=== PATIENT | female | born 1940 | race Caucasian/White ===

== ENCOUNTER → 2019-03-28 | Outpatient (CLI) | payer OTHER, BC | LOC: NUC 09:28 | DX: M81.0 Age-related osteoporosis without current pathological fracture (principal); M17.0 Bilateral primary osteoarthritis of knee; Z78.0 Asymptomatic menopausal state ==

== ENCOUNTER 2019-11-04 21:21 | Inpatient (IN) | payer OTHER, BC ==
[~2019-11-04] VITALS: Ht 142.2 cm; Wt 64.3 kg
[2019-11-04 21:24] VITALS: BP 146/78
[2019-11-04 22:01] LABS: ABSOLUTE NEUTROPHILS 3.7 thou/uL (1.4-8.2); BASOPHILS 1.1 % (0.0-2.0); EOSINOPHILS 4.8 % (0.0-3.0); HEMATOCRIT 38.8 % (37.0-47.0); HEMOGLOBIN 12.6 gm/dL (12.0-15.0); LYMPHOCYTES 32.2 % (24.0-44.0); MCH 30.8 pg (26.0-34.0); MCHC 32.4 g/dL (28.0-37.0); MONOCYTES 7.9 % (1.0-8.0); PLATELET COUNT 202 thou/uL (150-400); RBC 4.08 mil/uL (4.20-5.00); RDW 14.6 % (10.5-14.5); WBC 6.9 thou/uL (4.0-11.0)
[2019-11-04 22:08] LABS: ANION GAP 7 mmol/L (7-16); BUN 36 mg/dL (7-18); CALCIUM 9.4 mg/dL (8.5-10.1); CHLORIDE 103 mmol/L (98-107); CO2 27 mmol/L (21-32); GLUCOSE 131 mg/dL (74-106); POTASSIUM 3.7 mmol/L (3.5-5.1); SODIUM 137 mmol/L (136-145)
[2019-11-04 22:18] LABS: LIPASE 278 U/L (73-393); SGOT 15 U/L (15-37); SGPT 19 U/L (30-65); TOTAL BILIRUBIN 0.3 mg/dL (<0.1-1.0); TOTAL PROTEIN 7.3 g/dL (6.4-8.2); TROPONIN-I <0.06 ng/mL (<0.06)
[2019-11-04 23:40] LABS: URINE BILIRUBIN NEGATIVE (Negative); URINE BLOOD TRACE (Negative); URINE CLARITY CLEAR; URINE COLOR YELLOW; URINE GLUCOSE-RANDOM* NEGATIVE (Negative); URINE KETONES NEGATIVE (Negative); URINE LEUKOCYTES-REFLEX NEGATIVE (Negative); URINE NITRITE-REFLEX NEGATIVE (Negative); URINE PROTEIN (DIPSTICK) NEGATIVE (Negative); URINE UROBILINOGEN 0.2 E.U./dl (0.2-1.0)
[2019-11-05] VITALS (8 sets, daily range): BP systolic 134–193; BP diastolic 58–88
--- NOTE | 2019-11-05 03:09 | NUR ---
PT AOX4 WITH INTERMITTENT FORGETFULNESS. PT REPORTS SHE IS NOT THE BEST HISTORIAN. UNABLE TO OBTAIN MEDICATION LIST AT THIS TIME DUE TO PT POOR RECALL. PT TRANSFERRING FROM BED TO BEDSIDE COMMODE WITH STANDBY ASSIST, PT RESTING IN BED OTHERWISE. PT REPORTS BASELINE USE OF WALKER AND WHEELCHAIR AT HOME. PT REPORTS WEAKNESS IN BLE WITH ACTIVITY. PT TOLERATING PO INTAKE OF CLEAR LIQUID DIET WITHOUT ISSUE. NO REPORTS OF NAUSEA AT THIS TIME. PT REPORTS DAUGHTER, EMILIE KURTZ WILL BE BY TOMORROW TO ASSIST WITH MEDICATION RECONCILIATION. PT ORIENTED TO UNIT AND ROOM. ENCOURAGED PT TO NOTIFY STAFF FOR ALL NEEDS. CALL LIGHT WITHIN REACH, BED IN LOWEST POSITION, BED ALARM ON. WILL CONTINUE TO MONITOR.
[2019-11-05 06:55] LABS: CALCIUM 8.8 mg/dL (8.5-10.1); CREATININE 0.9 mg/dL (0.6-1.0); POTASSIUM 3.7 mmol/L (3.5-5.1)
[2019-11-05] MEDS ORDERED: ALLOPURINOL 10100 M3 PO (09:11)
[2019-11-05] MEDS ORDERED: PROTOPIC OINTME30 GM TP (09:12)
[2019-11-05] MEDS ORDERED: HYDROCHLOROTHIA25 M2 PO (09:12)
[2019-11-05] MEDS ORDERED: MUPIROCIN15 GM TOP (09:13)
[2019-11-05] MEDS ORDERED: NYSTATIN100000 UNI SW&SWALLOW (09:14)
[2019-11-05] MEDS ORDERED: THEO-24300 MG PO (09:14)
[2019-11-05] MEDS ORDERED: MELOXICAM15 MG PO (09:15)
[2019-11-05] MEDS ORDERED: VERAPAMIL ER240 M1 PO (09:15)
[2019-11-05] MEDS ORDERED: RALOXIFENE HCL60 MG PO (09:15)
[2019-11-05] MEDS ORDERED: SINGULAIR 10 MG10 M1 PO (09:16)
[2019-11-05] MEDS ORDERED: IRBESARTAN150 MG PO (09:16)
[2019-11-05] MEDS ORDERED: KLOR-CON M2020 MEQ PO (09:17)
--- NOTE | 2019-11-05 09:17 | NUR ---
SPOKE WITH PHARMACIST AT [facility] AND OBTAINED PATIENTS CURRENT MEDICATION LIST.
--- NOTE | 2019-11-05 12:26 | NUR ---
VSS-AFEBRILE. LUNGS CLEAR/DIMINSHED IN ALL ARREGUIN BILATERALLY-ROOM AIR. NO REPORTED N/V OR DIARRHEA SINCE ADMISSION. DR PRITCHARD IN TO SEE PATIENT, ORDERS RECIEVED. NO REPORTS OF PAIN, OR DIFFICULTY VOIDING. FALL PRECAUTIONS IN PLACE. TRANSFERRED TO SENIOR SUITES, PHYSICIAN AND FAMILY NOTIFIED. REPORT GIVEN TO RECIEVEING RN.
--- NOTE | 2019-11-06 03:31 | NUR ---
PATIENT ALERT AND ORIENTED X4. UP WITH SBA IN ROOM. BED ALARM ON DUE TO FORGETFULNESS. PATIENT REFUSED TO WEAR SCD'S STATED THAT SHE WAS "AMBULATORY" AND DID NOT NEED THEM. IVF INFUSING W/O COMPLICATION. UP TO BATHROOM WITH SBA AND WALKER. DENIES PAIN.
[2019-11-06 05:36] VITALS: BP 179/84
[2019-11-06 07:11] VITALS: BP 179/84
[2019-11-06 07:27] VITALS: BP 179/84
[2019-11-06] MEDS ORDERED: CATAPRES0.1 MG PO (09:32)
[2019-11-06 09:36] VITALS: BP 179/84
[2019-11-06 11:27] VITALS: BP 137/76
--- NOTE | 2019-11-06 11:59 | NUR ---
PT CARE ASSUMED AT 0700. A&Ox4 PT UP WALKING WITH THE AID AND A WALKER. IV FLUIDS DC'D. IV PATENT WITH NO REDNESS OR EDEMA. FALL PROTOCOL IN PLACE. PT UP IN THE RECLINER MOST OF THE DAY. EASILY ORIENTED BACK WHEN THE CHAIR ALARM GOES OFF TO NOT GET UP. DAUGHTER IN THE ROOM. PT IS INTICIPATED TO DC TODAY AFTER A ONETIME DOSE OF [place]AN AND BP RECHECK. CALL LIGHT IN REACH
[2019-11-06 12:36] VITALS: BP 137/76
--- NOTE | 2019-11-07 08:07 | EKG ---
[facility] [place] [address] ELECTROCARDIOGRAM REPORT Name: ALLEN KURTZ Room #: 405-[facility] IN M.R.#: [id number] Admission: 11/05/19 Attend Phys: Dayanna Nieves MD Discharge: 11/06/19 Date of : 40 Report #: [id number] THIS REPORT FOR: cc: Mello Soliz MD, Neal A. 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 : 1940 Requested By: Mary Diaz Order Number: [id number] MD: Kavin Maynard Measurements Intervals [place] Rate: 66 P: 218 [place]: 253 QRS: 35 QRSD: 104 T: 75 QT: 460 QTc: 482 Interpretive Statements Sinus with first-degree AV block Otherwise no significant abnormality No previous ECG available for comparison Electronically Signed On 11-07-2019 8:06:16 CDT by Kavin Maynard [email or web address] <ELECTRONICALLY SIGNED> By: Kavin Maynard MD, [facility] 11/07/19 0806 57 Kavin Maynard MD, [facility] /EPI
== END 2019-11-06 13:25 | disposition home or self-care (01) | DRG 392 ==
LOC: ER 21:21 → EROBS 11-05 00:24 → 4S 11-05 01:16 → 4N 11-05 12:00
PROVIDERS: Emergency Medicine Emergency Medical Services; Nurse Practitioner Family; ADMIT Hospitalist
DX: K52.9 Noninfective gastroenteritis and colitis, unspecified (principal); K29.70 Gastritis, unspecified, without bleeding; E86.0 Dehydration; M10.9 Gout, unspecified; I10 Essential (primary) hypertension; J45.909 Unspecified asthma, uncomplicated; F03.90 Unspecified dementia, unspecified severity, without behavioral disturbance, psychotic disturbance, mood disturbance, and anxiety; M19.90 Unspecified osteoarthritis, unspecified site; Z96.653 Presence of artificial knee joint, bilateral; T50.905A Adverse effect of unspecified drugs, medicaments and biological substances, initial encounter; Z96.612 Presence of left artificial shoulder joint; M81.0 Age-related osteoporosis without current pathological fracture; Y92.89 Other specified places as the place of occurrence of the external cause; Z88.0 Allergy status to penicillin; Z88.1 Allergy status to other antibiotic agents
CPT/HCPCS: 10790

== ENCOUNTER 2019-11-07 12:56 | Emergency (ER) | payer OTHER, BC ==
[~2019-11-07] VITALS: Ht 149.9 cm; Wt 45.4 kg
[~2019-11-07 12:56] MED LIST: ALLOPURINOL 10100 M3 PO; CATAPRES0.1 MG PO; HYDROCHLOROTHIA25 M2 PO; IRBESARTAN150 MG PO; KLOR-CON M2020 MEQ PO; MELOXICAM15 MG PO; MUPIROCIN15 GM TOP; NYSTATIN100000 UNI SW&SWALLOW; PROTOPIC OINTME30 GM TP; RALOXIFENE HCL60 MG PO; SINGULAIR 10 MG10 M1 PO; THEO-24300 MG PO; VERAPAMIL ER240 M1 PO
[2019-11-07 14:09] VITALS: BP 148/73
== END 2019-11-07 14:05 | disposition left against medical advice (07) ==
LOC: ER 12:56
DX: M54.2 Cervicalgia (principal); M25.511 Pain in right shoulder; M81.0 Age-related osteoporosis without current pathological fracture; F03.90 Unspecified dementia, unspecified severity, without behavioral disturbance, psychotic disturbance, mood disturbance, and anxiety; I10 Essential (primary) hypertension; J45.909 Unspecified asthma, uncomplicated; Z96.653 Presence of artificial knee joint, bilateral; Z96.612 Presence of left artificial shoulder joint; Z79.899 Other long term (current) drug therapy; Z88.0 Allergy status to penicillin; Z88.1 Allergy status to other antibiotic agents; Z88.6 Allergy status to analgesic agent; Z88.4 Allergy status to anesthetic agent

== ENCOUNTER 2020-11-10 21:27 | Emergency (ER) | payer OTHER, BC ==
[~2020-11-10] VITALS: Ht 142.2 cm; Wt 62.1 kg
[2020-11-10 21:54] LABS: ABSOLUTE NEUTROPHILS 3.1 thou/uL (1.4-8.2); BASOPHILS 0.9 % (0.0-2.0); EOSINOPHILS 5.3 % (0.0-3.0); HEMATOCRIT 34.2 % (37.0-47.0); HEMOGLOBIN 11.5 gm/dL (12.0-15.0); LYMPHOCYTES 31.4 % (24.0-44.0); MCH 31.6 pg (26.0-34.0); MCHC 33.7 g/dL (28.0-37.0); MCV 93.8 fL (80.0-100.0); MONOCYTES 11.8 % (1.0-8.0); PLATELET COUNT 183 thou/uL (150-400); POLYS 50.6 % (36.0-66.0); RBC 3.65 mil/uL (4.20-5.00); RDW 14.2 % (10.5-14.5); WBC 6.1 thou/uL (4.0-11.0)
[2020-11-10] MEDS ORDERED: PREDNISONE 20 M20 MG PO (22:02)
[2020-11-10 22:10] LABS: ANION GAP 9 mmol/L (7-16); BUN 37 mg/dL (7-18); CALCIUM 8.9 mg/dL (8.5-10.1); CHLORIDE 106 mmol/L (98-107); CO2 28 mmol/L (21-32); CREATININE 1.1 mg/dL (0.6-1.0); GLUCOSE 100 mg/dL (74-106); POTASSIUM 3.6 mmol/L (3.5-5.1); SODIUM 143 mmol/L (136-145)
[2020-11-10 22:15] LABS: ALBUMIN 3.6 g/dL (3.4-5.0); SGOT 13 U/L (15-37); SGPT 18 U/L (14-59); TOTAL BILIRUBIN 0.2 mg/dL (0.2-1.0); TOTAL PROTEIN 6.8 g/dL (6.4-8.2); TROPONIN-I <0.06 ng/mL (<0.06)
[2020-11-10] MEDS ORDERED: HYDROCHLOROTH12.5 M1 PO (23:21)
[2020-11-11 00:30] VITALS: BP 119/40
--- NOTE | 2020-11-12 07:24 | EKG ---
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: 1940 Requested By: Nura Anderson Order Number: [id number] MD: Sid Denise Measurements Intervals [place] Rate: 71 P: -22 SD: 211 QRS: 40 QRSD: 115 T: 81 QT: 432 QTc: 470 Interpretive Statements Sinus rhythm Nonspecific intraventricular conduction delay Borderline low voltage, extremity leads Compared to ECG 11/04/2019 21:58:53 Intraventricular conduction delay now present Electronically Signed On 11-12-2020 7:23:44 CDT by Sid Denise [email or web address] <ELECTRONICALLY SIGNED> By: Sid Denise MD, [facility] 11/12/20 0723 [id number] Sid Denise MD, FACC /EPI
--- NOTE | 2020-11-12 07:24 | EKG ---
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: 1940 Requested By: Nura Anderson Order Number: [id number] MD: Sid Denise Measurements Intervals [place] Rate: 71 P: -77 [place]: 242 QRS: 43 QRSD: 98 T: 74 QT: 436 QTc: 474 Interpretive Statements Sinus or ectopic atrial rhythm Prolonged VA interval Borderline low voltage, extremity leads Compared to ECG 11/04/2019 21:58:53 Ectopic atrial rhythm now present First degree AV block now present Electronically Signed On 11-12-2020 7:23:46 CDT by Sid Denise [email or web address] <ELECTRONICALLY SIGNED> By: Sid Denise MD, [facility] 11/12/20 0723 D: [id number] Sid Denise MD, FACC /EPI
== END 2020-11-11 00:30 | disposition home or self-care (01) ==
LOC: ER 21:27
PROVIDERS: Emergency Medicine
DX: J45.909 Unspecified asthma, uncomplicated (principal); I10 Essential (primary) hypertension; M10.9 Gout, unspecified; Z79.899 Other long term (current) drug therapy; Z88.0 Allergy status to penicillin; Z88.1 Allergy status to other antibiotic agents; Z88.8 Allergy status to other drugs, medicaments and biological substances; Z88.6 Allergy status to analgesic agent

== ENCOUNTER → 2021-03-06 | Outpatient (CLI) | payer OTHER, BC ==
[~2021-03-06] MED LIST changes: +HYDROCHLOROTH12.5 M1 PO; +PREDNISONE 20 M20 MG PO
== END ==
LOC: BC 09:21
PROVIDERS: ATTEND Family Medicine
DX: Z12.31 Encounter for screening mammogram for malignant neoplasm of breast (principal)